=== PATIENT | male | born 1995 | race Caucasian/White ===

== ENCOUNTER → 2016-11-22 | Day surgery (SDC) | payer BC ==
[~2016-11-22] MED LIST: BACITRACIN OINT 30GM As Ordered ONE; BACITRACIN OINT 30GM TOP ONE; BACT800T5 PO; BUPIVACAINE HCL 0.25% 30 ML VIAL As Ordered ONE; BUPIVACAINE HCL 0.25% 30 ML VIAL XX ONE; DRYS20SO TOP; KETOROLAC 60 MG/2 ML VIAL (J1885) As Ordered ONE; LIDOCAINE 1% SDV INJ 30 ML VIAL As Ordered ONE; LIDOCAINE 1% SDV INJ 30 ML VIAL XX ONE; LIDOCAINE 2% INJ 100 MG/5 ML SDV (FOR ANES.) As Ordered ONE; LISI-538 PO; LR 1,000 ML IV SCH; MEPERIDINE INJ 25 MG/ML VIAL (J2175) IV PRN; METOCLOPRAMIDE INJ 10MG/2ML VIAL (J2765) As Ordered ONE; METOCLOPRAMIDE INJ 10MG/2ML VIAL (J2765) IV PRN; MIDAZOLAM INJ 2 MG/2 ML VIAL (J2250) As Ordered ONE; MONT10TA2 PO; MULT1TAB18 PO; ONDANSETRON 4MG/2ML VIAL (J2405) As Ordered ONE; ONDANSETRON 4MG/2ML VIAL (J2405) IV PRN; PERCOCET PO; PHENYLephrine HCL 500 MCG/5 ML (100MCG/ML) SYRINGE (J2370) As Ordered ONE; PROA1AER INH; PROPOFOL 200 MG/20 ML VIAL As Ordered ONE; ROCURONIUM BROMIDE 50 MG/5 ML VIAL As Ordered ONE; SUCCINYLCHOLINE 100 MG/5 ML SYRINGE (J0330) As Ordered ONE; ZYRT10TA2 PO; dexameTHASONE 4 MG/ML 1ML VIAL (J1100) As Ordered ONE; fentaNYL 100 MCG/2 ML INJECTION (J3010) As Ordered ONE; fentaNYL 100 MCG/2 ML INJECTION (J3010) IV PRN; fentaNYL 250 MCG/5 ML INJECTION (J3010) As Ordered ONE
[2016-11-22 13:08] LABS: MEAN CORPUSCULAR HEMOGLOBIN 30.5 pg (27.0-33.0); MEAN CORPUSCULAR HGB CONC 33.8 g/dl (32.0-36.5); MEAN CORPUSCULAR VOLUME 90.3 fl (80.0-96.0); RED CELL DISTRIBUTION WIDTH 12.2 % (11.5-14.5); WHITE BLOOD COUNT 8.4 K/mm3 (4.0-10.0)
[2016-11-22 13:25] LABS: ANION GAP 9 MEQ/L (8-16); BLOOD UREA NITROGEN 17 MG/DL (7-18); CALCIUM LEVEL 9.5 MG/DL (8.5-10.1); CARBON DIOXIDE LEVEL 27 MEQ/L (21-32); CHLORIDE LEVEL 105 MEQ/L (98-107); CREATININE FOR GFR 1.03 MG/DL (0.70-1.30); GLOMERULAR FILTRATION RATE > 60.0 (>60); GLUCOSE, FASTING 89 MG/DL (70-105); POTASSIUM SERUM 4.5 MEQ/L (3.5-5.1); SODIUM LEVEL 141 MEQ/L (136-145)
[2016-11-22] MEDS: PERCOCET 5MG/325MG TAB PO PRN ×2 (15:23→15:43)
[2016-11-22 16:30] VITALS: BP 141/63
--- NOTE | 2016-11-23 11:58 | RO ---
DATE OF PROCEDURE: 11/22/2016 PREPROCEDURE DIAGNOSIS: Phimosis. POSTPROCEDURE DIAGNOSIS: Phimosis. PROCEDURE: Circumcision. SURGEON: Dr. Jean Paul Haney. DIRECTOR FIELD SERVICES: ANESTHESIA: General. COMPLICATIONS: None. ESTIMATED BLOOD LOSS: N/A. HISTORY OF PRESENT ILLNESS: 21-year-old male patient that cannot retract his foreskin. He has pain also in the tip of the penis. For this reason, he has consented for a circumcision. PROCEDURE DESCRIPTION: With the patient in supine position under general anesthesia, after prepping and draping the area of concern which included the entire genitalia, we placed a penile block with lidocaine 1% and Marcaine 0.25%, 10 mL on the base of the penis. We then proceeded to do a split incision in the dorsal aspect of the foreskin and we were able to retract the foreskin completely exposing the glans. At that moment in time, we prepped again the glans with betadine. We then proceeded to actually placed a #3-0 silk in the head of the glans and this served us to retract the penis to actually expose the mucosa of the foreskin. We did a circumferential incision 1 cm away from the sulcus glans and then we proceeded to actually do another circumferential incision proximal to this one about 4 cm in distance from the first one. We then resected the skin between both circumferential incisions and fulgurated with electro Bovie cautery every bleeding vessel. After securing hemostasis, we actually closed approximately both borders with #3-0 chromic in separate stitches. We send the foreskin for pathology specimen analysis. We then proceeded to place bacitracin cream, a 4 x 4 and Coban around the penis. We took the stitch out from the head of the penis. PLAN: The patient will go home today with antibiotic and pain medication. Followup in 3-5 days for removal of the Coban. He cannot have sex for 1 month. He will go home with antibiotic and pain medication. There were no complications during surgery.
== END | disposition home or self-care (01) ==
LOC: M SDC 12:15
PROVIDERS: ATTEND Urology
DX: N47.1 Phimosis (principal); I10 Essential (primary) hypertension; J45.909 Unspecified asthma, uncomplicated; F17.220 Nicotine dependence, chewing tobacco, uncomplicated
CPT/HCPCS: 36415; 54161; 80048; 81001; 85027; 85610; 85730; 87086; 88304; J0330; J0690; J1100; J1885; J2250; J2370; J2405; J2765; J3010

== ENCOUNTER → 2017-12-24 | Outpatient (REF) | payer BC ==
[2017-12-24 11:16] LABS: SEMEN APPEARANCE OPAQUE (OPAQUE); SEMEN VISCOSITY LIQUID (LIQUID); SEMEN VOLUME 1.8 ml (4.0-5.0)
[2017-12-24 11:17] LABS: IMMOTILITY 12 %; NON PROGRESSIVE MOTILITY (c) 13 %; PROGRESSIVE MOTILITY (a) 75 % (>=32); SPERM ABNORMAL FORMS WBC'S NOTED; SPERM CONCENTRATION 28.5 M/ml (>=15.0); TOTAL MOTILITY 88 % (>=40); WBC CONCENTRATION >1 M/ml (<=1 M/ml)
[2017-12-24 11:18] LABS: % NORMAL FORMS 24 % (>=4); SPERM# 51.4 M/Ejac (>=39); TOTAL PROGRESSIVE SPERM 38.3 M/Ejac.
== END ==
LOC: M LAB REF 10:26
DX: Z31.41 Encounter for fertility testing (principal)